=== PATIENT | female | born 1995 | race Caucasian/White ===

== ENCOUNTER 2018-02-18 13:44 | Emergency (ER) | payer MEDICAID ==
[~2018-02-18] VITALS: Ht 167.6 cm; Wt 90.3 kg
[2018-02-18 13:51] VITALS: BP 124/76
== END 2018-02-18 16:18 | disposition home or self-care (01) ==
LOC: ER 13:49
DX: S61.012A Laceration without foreign body of left thumb without damage to nail, initial encounter (principal); W26.0XXA Contact with knife, initial encounter; Y93.89 Activity, other specified; Y92.090 Kitchen in other non-institutional residence as the place of occurrence of the external cause; Y99.8 Other external cause status
CPT/HCPCS: 12001; 73140